=== PATIENT | male | born 1960 | race Caucasian/White ===

== ENCOUNTER 2018-02-17 09:23 | Outpatient (CLI) | payer BC | END 2018-02-17 09:24 | disposition home or self-care (01) | LOC: CTENTCT 09:23 | PROVIDERS: ATTEND Specialist | DX: J32.9 Chronic sinusitis, unspecified (principal) | CPT/HCPCS: 70486 ==

== ENCOUNTER 2018-03-26 13:05 | Day surgery (SDC) | payer BC ==
[2018-03-25 16:26] VITALS: BMI 23.7
[2018-03-26] MEDS ORDERED: Oxymetazoline HCl 0.05% ( 15 ML ) ONE ×2 (13:55→15:25)
[2018-03-26] MEDS ORDERED: Lidocaine 1% w/Epinephrine 1:100K 20 ML VIAL ONE (15:25)
[2018-03-26] MEDS ORDERED: Midazolam HCl 2 mg/2 ml Vial ONE (15:37)
[2018-03-26] MEDS ORDERED: Fentanyl 250 MCG/5 ML VIAL ONE (15:45)
[2018-03-26] MEDS ORDERED: PROPOFOL 200 MG/20 ML VIAL ONE (16:21)
[2018-03-26] MEDS ORDERED: Dexamethasone 20 MG/5 ML VIAL ONE (16:21)
[2018-03-26] MEDS ORDERED: Ondansetron PF 4 MG/2 ML Vial ONE (16:21)
[2018-03-26] MEDS ORDERED: Succinylcholine Chloride 20 MG/ML 10 ml SYRINGE FS ONE (16:21)
[2018-03-26] MEDS ORDERED: Ketorolac Tromethamine 30 MG/ML VIAL ONE (16:21)
--- NOTE | 2018-03-27 14:05 | OP ---
DATE OF PROCEDURE: 03/26/2018 PREOPERATIVE DIAGNOSES: Chronic sinusitis, hypertrophic inferior turbinates, and pansinusitis. POSTOPERATIVE DIAGNOSES: Chronic sinusitis, hypertrophic inferior turbinates, and pansinusitis. PROCEDURES PERFORMED: Bilateral nasal endoscopy with maxillary antrostomy, bilateral nasal endoscopy with total ethmoidectomy, bilateral nasal endoscopy with frontal sinusotomy, bilateral nasal endoscopy with sphenoidotomy, bilateral nasal endoscopy with submucosal resection. DESCRIPTION OF PROCEDURE: BILATERAL NASAL ENDOSCOPY WITH MAXILLARY ANTROSTOMY: The uncinate was then identified and the extent of the uncinate was appreciated by out-fracturing the uncinate with the ball-tip probe. We then used the sickle blade to disarticulate the uncinate from the lateral nasal wall. This was then removed with straight biting and upbiting punches with the remaining shrouds of mucosa and bony septum removed with the micro-debrider. The natural os of the maxillary sinus was then identified and enlarged with the maxillary punches and back biting forceps. BILATERAL NASAL ENDOSCOPY WITH TOTAL ETHMOIDECTOMY: The anterior face of the ethmoid bulla was entered and with the micro-debrider, dissection continued posteriorly to the ground lamella. The limits of dissection included the insertion of the middle turbinate, medial orbital wall, and base of skull. We similarly identified the frontal recess and removed shrouds of bone and debris in that region to obtain patency into the agger nasi region and frontal recess. We then entered the ground lamella and its anteroinferior aspect and proceeded posteriorly, opening the posterior ethmoid air-cell system. Again, the limits of dissection included the base of skull and medial orbital wall. BILATERAL NASAL ENDOSCOPY WITH FRONTAL SINUSOTOMY: Following the ethmoidectomy, we then turned our attention to the frontal nasal recess. The agger nasi cells were addressed and the frontal recess was exposed. The natural opening to the frontal sinus was identified. At this point, any obstructing shrouds of mucosa and bony fragments were removed with a curved microdebrider. The wound was then examined and found to be free of any obstructing debris. We then turned our attention to the contralateral side and performed a similar procedure again under endoscopic visualization using a 45-degree scope. We were able to visualize the frontal recess. Obstructing shrouds of mucosa and bone were removed with a microdebrider. The natural os of frontal sinus was identified and enlarged and irrigated. At this point, the frontal sinusotomy was completed and we turned to the next area of concern. BILATERAL NASAL ENDOSCOPY WITH SPHENOIDOTOMY: The anterior face of the sphenoid was identified and entered in its extreme anteroinferior aspect. A sphenoid punch was then used to enlarge the sphenoidotomy and no injury to the optic nerve or internal carotid artery occurred. BILATERAL NASAL ENDOSCOPY WITH SUBMUCOSAL RESECTION: After consent was obtained, the patient was identified, brought to the operating room, and placed on the operating room table in the supine position. Consent was obtained, notifying the patient of the possibility of additional infections, bleeding, brain injury, and eye/orbital injury. The patient was placed on the operating room table, and general endotracheal anesthesia and intravenous access was obtained. The patient was then positioned, prepped and draped for endoscopic sinus surgery. Nasal preparation included trimming nasal vestibular hairs and spraying in topical Afrin. We then placed Afrin topical solution on nasal pledgets and strategically located them intranasally. The perinasal mucosa was injected with 1% lidocaine with 1:100,000 epinephrine in the submucoperichondrial plane of the septum, lateral nasal wall, and anterior to the uncinate. The patient was then prepped and draped in a sterile fashion and positioned for endoscopic sinus surgery. With the 0-degree endoscope, the patient underwent systematic nasal endoscopy. There were no suspicious internasal masses or lesions identified. We then focused our attention to the osteomeatal complex region under the middle turbinate. The inferior turbinates were visualized with a 0 degree endoscope and outfractured with a [place] elevator. The inferior medial aspect was cauterized with the electrocautery. Hemostasis was obtained . After adequate airway was established, we turned our attention to the contralateral side and used a similar procedure. Again, a [place] elevator was used to outfracture inferior turbinates under endoscopic visualization. With a suction cautery, the free inferior medial aspect was cauterized under direct visualization along the length of the inferior turbinate. At this point, we then turned our attention to the contralateral side and proceeded with endoscopic sinus surgery. At the completion of the case, [place] keel splints were placed in the ethmoid cavities after the ethmoidectomy. There were no complications. The patient tolerated the procedure well and was discharged to the recovery room in stable condition prior to return to the preoperative day stay with ultimate discharge home. Prescriptions for pain medication and antibiotics were provided. The patient received intramuscular Depo-Medrol during the case. Job ID: [id number]
== END 2018-03-26 18:10 | disposition home or self-care (01) ==
LOC: SDC 13:05
PROVIDERS: ATTEND Specialist
PROC: 099T8ZZ Drainage of Left Frontal Sinus, Via Natural or Artificial Opening Endoscopic (ICD-10-PCS; principal; 2018-03-26)
PROC: 099X8ZZ Drainage of Left Sphenoid Sinus, Via Natural or Artificial Opening Endoscopic (ICD-10-PCS; principal; 2018-03-26)
PROC: 09TV8ZZ Resection of Left Ethmoid Sinus, Via Natural or Artificial Opening Endoscopic (ICD-10-PCS; principal; 2018-03-26)
PROC: 09TU8ZZ Resection of Right Ethmoid Sinus, Via Natural or Artificial Opening Endoscopic (ICD-10-PCS; principal; 2018-03-26)
PROC: 099S8ZZ Drainage of Right Frontal Sinus, Via Natural or Artificial Opening Endoscopic (ICD-10-PCS; principal; 2018-03-26)
PROC: 099Q8ZZ Drainage of Right Maxillary Sinus, Via Natural or Artificial Opening Endoscopic (ICD-10-PCS; principal; 2018-03-26)
PROC: 09SL8ZZ Reposition Nasal Turbinate, Via Natural or Artificial Opening Endoscopic (ICD-10-PCS; principal; 2018-03-26)
PROC: 099W8ZZ Drainage of Right Sphenoid Sinus, Via Natural or Artificial Opening Endoscopic (ICD-10-PCS; principal; 2018-03-26)
PROC: 099R8ZZ Drainage of Left Maxillary Sinus, Via Natural or Artificial Opening Endoscopic (ICD-10-PCS; principal; 2018-03-26)
DX: J32.4 Chronic pansinusitis (principal); J34.3 Hypertrophy of nasal turbinates; Z79.51 Long term (current) use of inhaled steroids; Z79.899 Other long term (current) drug therapy
CPT/HCPCS: 93005; 93010; J1100; J1885; J2001; J2250; J2405; J2704; J3010

== ENCOUNTER 2018-09-14 17:00 | Outpatient (CLI) | payer BC | END 2018-09-14 17:01 | disposition home or self-care (01) | LOC: SLEEPLAB 17:00 | PROVIDERS: ATTEND Family Medicine | DX: G47.33 Obstructive sleep apnea (adult) (pediatric) (principal); R53.83 Other fatigue; R06.83 Snoring; R35.1 Nocturia | CPT/HCPCS: 95806 ==

== ENCOUNTER 2018-11-10 19:30 | Outpatient (CLI) | payer BC | END 2018-11-10 19:31 | disposition home or self-care (01) | LOC: SLEEPLAB 19:30 | PROVIDERS: ATTEND Family Medicine | DX: G47.33 Obstructive sleep apnea (adult) (pediatric) (principal); R53.83 Other fatigue; R06.83 Snoring | CPT/HCPCS: 95810 ==

== ENCOUNTER 2023-10-22 16:11 | Outpatient (CLI) | payer BC | END 2023-10-22 16:12 | disposition home or self-care (01) | LOC: SCSRAD 16:11 | DX: J18.9 Pneumonia, unspecified organism (principal) | CPT/HCPCS: 71046 ==